=== PATIENT | male | born 1985 | race Caucasian/White ===

== ENCOUNTER 2016-06-30 14:08 | Emergency (ER) | payer SELFPAY ==
[~2016-06-30 14:08] MED LIST: AUGMENTIN 875-1 EAC2 PO; COMPAZINE10 M PO; HYDROCODON-ACE1 EA16 PO; KEFLEX500 MG PO; NO HOME MEDS; NORCO 5/325 TAB1 TAB PO; OXYCODONE/APAP PO; PEN-VEE K500 MG PO; PENICILLIN V P500 M1 PO; PERCOCET 5-3251 EACH PO
[2016-06-30] MEDS ORDERED: PENICILLIN V P500 M1 PO (15:37)
[2016-06-30] MEDS ORDERED: NORCO 5-325 TA1 EACH PO (15:37)
== END 2016-06-30 16:24 ==
LOC: EDMED 14:08
DX: K08.89 Other specified disorders of teeth and supporting structures (principal); F17.210 Nicotine dependence, cigarettes, uncomplicated